=== PATIENT | male | born 1960 | race Caucasian/White ===

== ENCOUNTER 2017-10-14 17:21 | Emergency (ER) | payer OTHER ==
[2017-10-14] MEDS ORDERED: ALBUTEROL 2.5 MG/3 ML NEB SOL ONE (19:28)
[2017-10-14] MEDS ORDERED: METHYLPREDNISOLONE 125 MG INJ ONE (19:28)
[2017-10-14] MEDS ORDERED: IPRATROPIUM BROM 0.5MG/2.5ML ONE (19:28)
[2017-10-14] MEDS ORDERED: MAGNESIUM SULFATE 1 gm IVPB 1 GM/100 ML BAG IV ONE (19:32)
[2017-10-14] MEDS ORDERED: NA CHLORIDE 0.9% 500 ML ONE (19:32)
[2017-10-14 19:54] LABS: Absolute Lymphocytes (CBC) 1.4 K/uL (0.7-4.9); Absolute Monocytes 0.7 K/uL (0.1-1.3); Absolute Neutrophil 3.6 K/uL (1.8-8.0); Basophils % 1.1 % (0-1.3); Eosinophils % 6.4 % (0-4.4); Hematocrit 46.2 % (39.6-49.0); Lymphocytes % 22.9 % (15.3-44.8); MCH 30.8 pg (27.0-35.0); MCV 88.5 fL (80-100); Monocytes % 11.8 % (3.3-12.3); RBC Red Blood Cell Count 5.22 M/uL (4.33-5.43)
[2017-10-14 20:00] LABS: Protime INR 0.98
[2017-10-14 20:06] LABS: Bicarbonate 30 mEq/L (21-31); Glucose Level 114 mg/dL (65-120); Potassium 3.7 mEq/L (3.6-5.0); Sodium Level 138 mEq/L (135-145)
[2017-10-14 20:12] LABS: ALT/SGPT 44 IU/L (10-60); AST/SGOT 37 IU/L (10-42); Albumin 4.5 g/dL (3.2-5.5); Alkaline Phosphatase 96 IU/L (42-121); BUN Blood Urea Nitrogen 11 mg/dL (6-20); Bilirubin Direct < 0.1 mg/dL (0-0.2); Bilirubin Total 0.8 mg/dL (0.3-1.2); Creatine Phosphokinase 285 IU/L (22-269); Magnesium 2.2 mg/dL (1.8-2.5); Protein, Total 7.9 g/dL (6.0-8.3)
[2017-10-14 20:15] LABS: CKMB Creatine Kinase MB 5.3 ng/ml (0.3-4.0)
--- NOTE | 2017-10-14 20:16 | RAD REPORT ---
EXAM DESCRIPTION: RAD - Chest Single View - 10/14/2017 7:27 pm CLINICAL HISTORY: Hypertension, headache, chest pain COMPARISON: August 2014 TECHNIQUE: AP portable chest image was obtained 1922 hours . FINDINGS: No focal mass, consolidation or failure finding. A few small areas of nodularity are belie oliver to be small granulomas stable from prior imaging. No mediastinal or hilar abnormality identifiabl e. Heart and vasculature are normal. No measurable pleural effusion and no pneumothorax. No gross bon y abnormality seen. No acute aortic findings suspected. IMPRESSION: No acute cardiopulmonary process. No significant interval change.
[2017-10-14] MEDS ORDERED: ASPIRIN 81 MG CHEWABLE TABLET ONE (20:36)
--- NOTE | 2017-10-14 21:00 | ER ---
Nurse's Notes [facility] Emergency Department Name: Xander Solis Age: 57 yrs Sex: Male : 1960 Arrival Date: 10/14/2017 Time: 17:25 Bed 2 Private MD: Cooper Carreon R Diagnosis: Unspecified asthma with (acute) exacerbation Presentation: 10/14 17:35 Presenting complaint: Patient states: Saturday, BP was 190/90; cough that started Saturday; hj reports headache, reports nausea; reports night sweats last night and dizziness;. Transition of care: patient was not received from another setting of care. Onset of symptoms was October 14, 2017. Care prior to arrival: None. 17:35 Method Of Arrival: Ambulatory 17:35 Acuity: SHERMAN 3 hj Triage Assessment: 17:39 General: Appears in no apparent distress. uncomfortable, Behavior is calm, cooperative, hj appropriate for age. Pain: Complains of pain in head. Respiratory: Reports shortness of breath cough that is Onset: The symptoms/episode began/occurred Historical: - Allergies: 17:39 No Known Allergies; hj - Home Meds: 17:39 albuterol sulfate Oral [Active]; hj - PMHx: 17:39 Asthma; Hypertension; hj - PSHx: 17:39 nose surgery; hj - Immunization history:: Adult Immunizations unknown. - Social history:: Smoking status: unknown. Screenin:54 Abuse screen: Denies threats or abuse. Denies injuries from another. Nutritional ak1 screening: No deficits noted. Tuberculosis screening: No symptoms or risk factors identified. Fall Risk None identified. Assessment: 17:39 Cardiovascular: Rhythm is. Respiratory: Airway is patent Respiratory effort is even, hj unlabored, Respiratory pattern is regular, symmetrical, 19:52 General: Appears uncomfortable, Behavior is calm, cooperative. Neuro: No deficits ak1 noted. GI: pt vomited X1. pt stated he felt better after. : No signs and/or symptoms were reported regarding the genitourinary system. EENT: No signs and/or symptoms were reported regarding the EENT system. Derm: No signs and/or symptoms reported regarding the dermatologic system. Musculoskeletal: No signs and/or symptoms reported regarding the musculoskeletal system. Vital Signs: 17:39 BP 113 / 73; Pulse 92; Resp 18; Temp 98.4(TE); Pulse Ox 95% on R/A; Weight 95.25 kg; hj Height 6 ft. 0 in. (182.88 cm); Pain 2/10; 19:52 BP 149 / 82 LA Sitting (auto/reg); Pulse 84; Resp 14; Pulse Ox 99% ; cc 20:40 BP 119 / 79; Pulse 110; Resp 14; Temp 98.4; Pulse Ox 95% on R/A; Pain 1/10; ak1 21:06 BP 117 / 73 LA Sitting (auto/reg); Pulse 100; Resp 18; Pulse Ox 97% on R/A; cc 17:39 Body Mass Index 28.48 (95.25 kg, 182.88 cm) ED Course: 17:25 Patient arrived in ED. mr 17:25 Cooper Carreon MD is Private Physician. mr 17:38 Triage completed. hj 17:39 Arm band placed on right wrist. hj 19:12 Marco Myers MD is Attending Physician. tw4 19:12 Zhang Chavez PA is PHCP. cp 19:26 X-ray completed. Portable x-ray completed in exam room. Patient tolerated procedure kc2 well. 19:26 XRAY Chest (1 view) In Process Unspecified. EDMS 19:29 Melissa Kwok, RN is Primary Nurse. ak1 19:49 CKMB Creatine Kinase MB Sent. cc 19:49 Influenza Screen (a \T\ B) Sent. cc 19:49 Basic Metabolic Panel Sent. cc 19:50 Ckmb Sent. cc 19:50 BNP Sent. cc 19:50 CBC with Diff Sent. cc 19:50 CPK Sent. cc 19:50 LFT's Sent. cc 19:50 Magnesium Sent. cc 19:50 PT-INR Sent. cc 19:50 Ptt, Activated Sent. cc 19:51 Troponin (emerg Dept Use Only) Sent. cc 19:51 Initial lab(s) drawn, by me, sent to lab. EKG done, by ED staff, reviewed by Zhang NAVARRO. Inserted saline lock: 20 gauge in right antecubital area, using aseptic technique. Blood collected. 19:54 Patient has correct armband on for positive identification. Placed in gown. Bed in low ak1 position. Call light in reach. Side rails up X 1. Adult w/ patient. nuclear monitoring technician on. Pulse ox on. NIBP on. 19:54 Basic Metabolic Panel Sent. cc 19:55 BNP Sent. cc 21:11 No provider procedures requiring assistance completed. IV discontinued, intact, ak1 bleeding controlled, No redness/swelling at site. Administered Medications: 19:50 Drug: Albuterol - atroVENT (3:1) (2.5 mg - 0.5 mg) 3 ml Route: Nebulizer; ak1 20:39 Follow up: Response: No adverse reaction ak1 19:51 Drug: SOLU-Medrol 125 mg Route: IM; Site: left gluteus; ak1 20:39 Follow up: Response: No adverse reaction ak1 19:51 Drug: NS 0.9% 500 ml Route: IV; Rate: bolus; Site: right antecubital; ak1 21:11 Follow up: IV Status: Completed infusion ak1 19:51 Drug: Magnesium Sulfate 1 grams Route: IVPB; Infused Over: 1 hrs; Site: right ak1 antecubital; 21:13 Follow up: IV Status: Completed infusion ak1 20:39 Drug: Aspirin Chewable Tablet 324 mg Route: PO; ak1 20:39 Follow up: Response: No adverse reaction ak1 Outcome: 20:59 Discharge ordered by . cp 21:11 Discharged to home ambulatory, with family. ak1 21:11 Condition: good 21:11 Discharge instructions given to patient, family, Instructed on discharge instructions, follow up and referral plans. medication usage, Demonstrated understanding of instructions, follow-up care, medications, Prescriptions given X 4. 21:12 Patient left the ED. ak1 Signatures: Dispatcher [employer] EDND Larissa Campbell ScientologyAnastasiia Melissa Kwok RN RN ak1 Tony Leiva RN RN hj Page, Corey, PA PA cp Carr, Kelsie kc2 Marco Myers MD MD tw4 Corrections: (The following items were deleted from the chart) 17:41 17:35 Presenting complaint: Patient states: Saturday, BP was 190/90; cough that started hj Saturday; reports headache, reports nausea; hj 17:41 17:39 Pulse 92bpm; Resp 18bpm; Pulse Ox 95% RA; Temp 98.4F Temporal; 95.25 kg; Height 6 hj ft. 0 in.; BMI: 28.4; Pain 2/10; hj
--- NOTE | 2017-10-14 21:00 | EDPHYS ---
Physician Documentation [facility] Name: Xander Solis Age: 57 yrs Sex: Male : 1960 Arrival Date: 10/14/2017 Time: 17:25 Bed 2 Private MD: Cooper Carreon R ED Physician Marco Myers HPI: 10/14 19:15 This 57 yrs old Male presents to ER via Ambulatory with complaints of High cp Blood Pressure, Shortness Of Breath. 19:15 The patient has elevated blood pressure and discovered this at home. Onset: The cp symptoms/episode began/occurred 3 day(s) ago. Associated signs and symptoms: Pertinent positives: cough, shortness of breath. 19:15 Severity of symptoms: At its worst the blood pressure was 190 mm Hg, in the emergency cp department the blood pressure is improved, markedly. Historical: - Allergies: 17:39 No Known Allergies; hj - Home Meds: 17:39 albuterol sulfate Oral [Active]; hj - PMHx: 17:39 Asthma; Hypertension; hj - PSHx: 17:39 nose surgery; hj - Immunization history:: Adult Immunizations unknown. - Social history:: Smoking status: unknown. ROS: 19:20 Constitutional: Negative for body aches, chills, fever, poor PO intake. cp 19:20 Eyes: Negative for injury, pain, redness, and discharge. cp 19:20 ENT: Negative for drainage from ear(s), ear pain, sore throat, difficulty swallowing, difficulty handling secretions. 19:20 Cardiovascular: Positive for chest pain, with cough, Negative for edema, palpitations. 19:20 Respiratory: Positive for cough, shortness of breath, wheezing. 19:20 Abdomen/GI: Negative for abdominal pain, vomiting, diarrhea, constipation, black/tarry stool, rectal bleeding. 19:20 Back: Negative for pain at rest, pain with movement, radiated pain. 19:20 : Negative for urinary symptoms. 19:20 Skin: Negative for cellulitis, rash. 19:20 Neuro: Negative for altered mental status, headache, numbness, seizure activity, weakness. 19:20 All other systems are negative. Exam: 19:28 Constitutional: The patient appears in no acute distress, alert, awake, cp non-diaphoretic, non-toxic, well developed, well nourished. 19:28 Head/Face: Normocephalic, atraumatic. Eyes: Pupils equal round and reactive to light, cp extra-ocular motions intact. Lids and lashes normal. Conjunctiva and sclera are non-icteric and not injected. Cornea within normal limits. Periorbital areas with no swelling, redness, or edema. ENT: Nares patent. No nasal discharge, no septal abnormalities noted. Tympanic membranes are normal and external auditory canals are clear. Oropharynx with no redness, swelling, or masses, exudates, or evidence of obstruction, uvula midline. Mucous membranes moist. Neck: Trachea midline, no thyromegaly or masses palpated, and no cervical lymphadenopathy. Supple, full range of motion without nuchal rigidity, or vertebral point tenderness. No Meningismus. Chest/axilla: Normal chest wall appearance and motion. Nontender with no deformity. No lesions are appreciated. 19:28 Cardiovascular: Rate: normal, Rhythm: regular, Pulses: Pulses are 2+ in right radial artery and left radial artery. Edema: is not appreciated, JVD: is not appreciated. 19:28 Respiratory: the patient does not display signs of respiratory distress, Respirations: labored breathing, is not present, accessory muscle usage, is absent, intercostal retractions, are absent, splinting, is not noted, tachypnea, is not appreciated, Breath sounds: rhonchi, are not appreciated, stridor, is not appreciated, wheezing: that is moderate, is heard diffusely. 19:28 Abdomen/GI: Inspection: abdomen appears normal, Bowel sounds: active, all quadrants, Palpation: abdomen is soft and non-tender, in all quadrants, rebound tenderness, is not appreciated, voluntary guarding, is not appreciated, involuntary guarding, is not appreciated. 19:28 Back: pain, is absent, ROM is normal. 19:28 Skin: cellulitis, is not appreciated, no rash present. 19:28 Neuro: Orientation: no acute changes, per family, Mentation: no acute changes, per family, Motor: moves all fours, strength is normal, Sensation: no obvious gross deficits, Gait: is steady. 19:35 ECG was reviewed by the Attending Physician. cp Vital Signs: 17:39 BP 113 / 73; Pulse 92; Resp 18; Temp 98.4(TE); Pulse Ox 95% on R/A; Weight 95.25 kg; hj Height 6 ft. 0 in. (182.88 cm); Pain 2/10; 19:52 BP 149 / 82 LA Sitting (auto/reg); Pulse 84; Resp 14; Pulse Ox 99% ; cc 20:40 BP 119 / 79; Pulse 110; Resp 14; Temp 98.4; Pulse Ox 95% on R/A; Pain 1/10; ak1 21:06 BP 117 / 73 LA Sitting (auto/reg); Pulse 100; Resp 18; Pulse Ox 97% on R/A; cc 17:39 Body Mass Index 28.48 (95.25 kg, 182.88 cm) hj MDM: 19:12 Patient medically screened. tw4 19:30 Differential diagnosis: hypertensive crisis, Malignant HTN, CVA, intracerebral cp hemorrhage. 20:45 Data reviewed: vital signs, nurses notes, lab test result(s), EKG, radiologic studies, cp plain films. 20:45 Test interpretation: by ED physician or midlevel provider: ECG, plain radiologic cp studies. 20:55 Counseling: I had a detailed discussion with the patient and/or guardian regarding: the cp historical points, exam findings, and any diagnostic results supporting the discharge/admit diagnosis, lab results, radiology results, the need for outpatient follow up, a family practitioner, to return to the emergency department if symptoms worsen or persist or if there are any questions or concerns that arise at home. 20:55 Response to treatment: the patient's symptoms have markedly improved after treatment, cp and as a result, I will discharge patient. 10/14 19:10 Order name: Basic Metabolic Panel tw 10/14 19:10 Order name: BNP; Complete Time: 20:30 tw4 10/14 19:10 Order name: CBC with Diff; Complete Time: 20:30 tw10/14 20:30 Interpretation: Normal except: MCV 88.5; EOSINOPHIL % 6.4. cp 10/14 19:10 Order name: Ckmb tw4 10/14 19:10 Order name: CPK; Complete Time: 20:30 tw10/14 20:30 Interpretation: Abnormal: CPK 285. cp 10/14 19:10 Order name: LFT's; Complete Time: 20:30 tw4 10/14 19:10 Order name: Magnesium; Complete Time: 20:30 tw4 10/14 19:10 Order name: PT-INR; Complete Time: 20:30 tw4 10/14 19:10 Order name: Ptt, Activated; Complete Time: 20:30 tw4 10/14 19:10 Order name: Troponin (emerg Dept Use Only); Complete Time: 20:30 tw4 10/14 20:43 Interpretation: Reviewed. 10/14 19:10 Order name: XRAY Chest (1 view); Complete Time: 20:30 tw4 10/14 19:11 Order name: Basic Metabolic Panel; Complete Time: 20:30 EDMS 10/14 20:43 Interpretation: Normal except: GFR 67. 10/14 19:11 Order name: CKMB Creatine Kinase MB; Complete Time: 20:30 EDMS 10/14 20:30 Interpretation: Abnormal: CKMB 5.3. 10/14 19:28 Order name: Influenza Screen (a \T\ B); Complete Time: 20:30 10/14 19:10 Order name: EKG; Complete Time: 19:11 [facility] 10/14 19:10 Order name: Cardiac monitoring; Complete Time: 19:49 tw 10/14 19:10 Order name: EKG - Nurse/Tech; Complete Time: 19:50 tw 10/14 19:10 Order name: IV Saline Lock; Complete Time: 19:50 tw 10/14 19:10 Order name: Labs collected and sent; Complete Time: 19:54 tw4 10/14 19:10 Order name: O2 Per Protocol; Complete Time: 19:52 tw4 10/14 19:10 Order name: O2 Sat Monitoring; Complete Time: 19:52 tw4 EC:35 Rate is 92 beats/min. Rhythm is regular. MA interval is normal. QRS interval is normal. QT interval is normal. Interpreted by me. Reviewed by me. Administered Medications: 19:50 Drug: Albuterol - atroVENT (3:1) (2.5 mg - 0.5 mg) 3 ml Route: Nebulizer; ak1 20:39 Follow up: Response: No adverse reaction ak1 19:51 Drug: SOLU-Medrol 125 mg Route: IM; Site: left gluteus; ak1 20:39 Follow up: Response: No adverse reaction ak1 19:51 Drug: NS 0.9% 500 ml Route: IV; Rate: bolus; Site: right antecubital; ak1 21:11 Follow up: IV Status: Completed infusion ak1 19:51 Drug: Magnesium Sulfate 1 grams Route: IVPB; Infused Over: 1 hrs; Site: right ak1 antecubital; 21:13 Follow up: IV Status: Completed infusion ak1 20:39 Drug: Aspirin Chewable Tablet 324 mg Route: PO; ak1 20:39 Follow up: Response: No adverse reaction ak1 Disposition: 10/15 00:21 Co-signature as Attending Physician, Marco Myers MD I agree with the assessment and tw4 plan of care. Disposition: 10/14/17 20:59 Discharged to Home. Impression: Unspecified asthma with (acute) exacerbation. - Condition is Stable. - Discharge Instructions: Asthma, Adult. - Prescriptions for prednisone 50 mg Oral tablet - take 1 tablet by ORAL route once daily for 5 days; 5 tablet. Albuterol Sulfate 2.5 mg /3 mL (0.083 %) Inhalation Solution for Nebulization - inhale 1 unit by NEBULIZATION route every 8 hours As needed; 1 box. Albuterol Sulfate 90 mcg/actuation - inhale 1-2 puff by INHALATION route every 4-6 hours; 1 Inhaler. - Medication Reconciliation Form, Thank You Letter, Antibiotic Education, Prescription Opioid Use form. - Follow up: Private Physician; When: 1 - 2 days; Reason: Recheck today's complaints. - Problem is new. - Symptoms have improved. Signatures: Dispatcher [employer] Melissa Martinze RN RN ak1 Tony Leiva RN RN hj Page, Corey, PA PA cp Wadley, Terrence, MD MD tw4
[2017-10-14 21:28] VITALS: TEMP 98.4
[2017-10-14 21:33] VITALS: BP 117/73; O2SAT 97
--- NOTE | 2017-10-15 06:56 | EKG ---
Test Date: 2017-10-14 Test Time: 19:28:14 Lathe Hand: ISAIAH MEASUREMENT RESULTS: Intervals: Rate: 92 WV: 142 QRSD: 80 QT: 350 QTc: 432 Elmer: P: 81 WV: 142 QRS: 45 T: 68 INTERPRETIVE STATEMENTS: Normal sinus rhythm Septal infarct, age undetermined Abnormal ECG Compared to ECG 08/15/2014 04:35:51 Myocardial infarct finding now present Electronically Signed On 10-15-17 06:55:05 CDT by Montrell Estevez
== END 2017-10-14 21:12 | disposition home or self-care (01) ==
LOC: ER 17:21
DX: J45.901 Unspecified asthma with (acute) exacerbation (principal); I10 Essential (primary) hypertension
CPT/HCPCS: 36415; 71045; 80048; 80076; 82550; 82553; 83735; 83880; 84484; 85025; 85610; 85730; 87804; 93005; 94640; 96361; 96365; 96372; 99285; J2930; J3475

== ENCOUNTER 2019-12-15 13:50 | Emergency (ER) | payer OTHER ==
--- NOTE | 2019-12-15 15:01 | RAD REPORT ---
EXAM DESCRIPTION: CT - Head Brain Wo Cont - 12/15/2019 2:51 pm CLINICAL HISTORY: HEADACHE COMPARISON: MAXILLOFACIAL W O CONTRAST dated 08/15/2014 TECHNIQUE: Axial 5 mm thick images of the head were obtained without IV contrast. All CT scans are performed using dose optimization technique as appropriate and may include automated exposure control or mA/KV adjustment according to patient size. FINDINGS: No intracranial hemorrhage, mass, edema or shift of mid-line structures. No acute infarcti on changes seen. No abnormal extra-axial fluid collections. Ventricles are normal. Mastoid air cells and visualized portions of the paranasal sinuses are clear. No acute bony findings. IMPRESSION: Negative non-contrast CT head examination.
[2019-12-15] MEDS ORDERED: KETOROLAC 30 MG/ML INJ ONE (16:27)
[2019-12-15] MEDS ORDERED: METOCLOPRAMIDE 10 MG/2mL INJ ONE (16:27)
[2019-12-15] MEDS ORDERED: DIPHENHYDRAMINE 50 MG/ML VIAL ONE (16:27)
[2019-12-15] MEDS ORDERED: NA CHLORIDE 0.9% 1,000 ML ONE (16:27)
--- NOTE | 2019-12-15 17:53 | EDPHYS ---
Physician Documentation [facility] Name: Xander Solis Age: 59 yrs Sex: Male : 1960 Arrival Date: 12/15/2019 Time: 13:53 Bed 13 Private MD: ED Physician Bo Hansen HPI: 12/14 16:42 This 59 yrs old Male presents to ER via Ambulatory with complaints of pm1 Headache. 16:42 The patient complains of pain to the right eye. The patient describes the headache as pm1 Sharp. Onset: The symptoms/episode began/occurred Ongoing for the past 4-5 years. Has headaches 3-4 times per week. Associated signs and symptoms: Pertinent positives: Photophobia Pertinent negatives: dizziness, fever, nausea, neck stiffness, paresthesias, rash, sinus congestion, sinus tenderness, vision changes, vision loss, vomiting, vertigo. Severity of symptoms: in the emergency department the pain has improved. Headache History: Other patient has had previous headaches and this headache is the same as his prior headaches. The symptoms are alleviated by quiet, sleep, closing eyes the symptoms are aggravated by lights, noise. The patient has experienced similar episodes in the past, chronically. Historical: - Allergies: 14:21 No Known Allergies; tw2 - Home Meds: 14:21 albuterol sulfate Oral [Active]; paroxetine HCl 10 mg oral tab 1 tab once daily tw2 [Active]; albuterol sulfate 2.5 mg /3 mL (0.083 %) Inhl nebu 3 mL 3 times per day [Active]; Vimpat 100 mg oral tab 1 tab 2 times per day [Active]; losartan 50 mg oral tab 1 tab once daily [Active]; tadalafil oral 5 mg oral 1 tab once daily [Active]; - PMHx: 14:21 Asthma; Hypertension; Seizures; tw2 - PSHx: 14:21 nose surgery; tw2 - Immunization history:: Adult Immunizations. - Social history:: Smoking status: Patient reports use of chewing tobacco. ROS: 16:45 Constitutional: Negative for fever, chills, and weight loss, Eyes: Negative for injury, pm1 pain, redness, and discharge, ENT: Negative for injury, pain, and discharge, Neck: Negative for injury, pain, and swelling, Cardiovascular: Negative for chest pain, palpitations, and edema, Respiratory: Negative for shortness of breath, cough, wheezing, and pleuritic chest pain, Abdomen/GI: Negative for abdominal pain, nausea, vomiting, diarrhea, and constipation, Back: Negative for injury and pain, MS/Extremity: Negative for injury and deformity, Skin: Negative for injury, rash, and discoloration. 16:45 Neuro: Positive for headache, Negative for altered mental status, dizziness, gait disturbance, numbness, tingling, weakness. Exam: 16:54 Constitutional: This is a well developed, well nourished patient who is awake, alert, pm1 and in no acute distress. Head/Face: Normocephalic, atraumatic. Eyes: Pupils equal round and reactive to light, extra-ocular motions intact. Lids and lashes normal. Conjunctiva and sclera are non-icteric and not injected. Cornea within normal limits. Periorbital areas with no swelling, redness, or edema. ENT: Nares patent. No nasal discharge, no septal abnormalities noted. Tympanic membranes are normal and external auditory canals are clear. Oropharynx with no redness, swelling, or masses, exudates, or evidence of obstruction, uvula midline. Mucous membranes moist. Neck: Trachea midline, no thyromegaly or masses palpated, and no cervical lymphadenopathy. Supple, full range of motion without nuchal rigidity, or vertebral point tenderness. No Meningismus. Chest/axilla: Normal chest wall appearance and motion. Nontender with no deformity. No lesions are appreciated. 16:54 Abdomen/GI: Soft, non-tender, with normal bowel sounds. No distension or tympany. No guarding or rebound. No evidence of tenderness throughout. Back: No spinal tenderness. No costovertebral tenderness. Full range of motion. Skin: Warm, dry with normal turgor. Normal color with no rashes, no lesions, and no evidence of cellulitis. MS/ Extremity: Pulses equal, no cyanosis. Neurovascular intact. Full, normal range of motion. 16:54 Cardiovascular: Exam negative for acute changes, Rate: normal, Rhythm: regular, Pulses: no pulse deficits are appreciated. 16:54 Respiratory: Exam negative for acute changes, respiratory distress, shortness of breath. 16:54 Neuro: Exam negative for acute changes, focal neuro deficits, Orientation: is normal, Mentation: is normal, Cranial nerves: CN II- XII are normal as tested, Cerebellar function: normal finger to nose testing, heel to matthews testing is normal, Motor: moves all fours, strength is normal, strength is 5/5 in all extremities, Sensation: is normal, no obvious gross deficits, Babinski testing is normal. Vital Signs: 14:15 BP 143 / 81; Pulse 69; Resp 17; Temp 98.4(TE); Pulse Ox 98% on R/A; Weight 95.25 kg tw2 (R); Height 6 ft. 2 in. (187.96 cm); Pain 2/10; 15:49 BP 128 / 85; Pulse 58; Resp 18; Pulse Ox 97% ; dh4 16:45 BP 106 / 86; Pulse 53; Resp 16; Pulse Ox 98% ; ah 17:30 BP 103 / 73; Pulse 55; Resp 16; Pulse Ox 97% ; ah 18:15 BP 126 / 82; Pulse 60; Resp 16; Pulse Ox 97% ; ah 14:15 Body Mass Index 26.96 (95.25 kg, 187.96 cm) tw2 MDM: 15:12 Patient medically screened. pm1 17:45 ED course: told the patient and family that my impression is cluster headache. pm1 Patient's researched online and agrees with impression because he has multiple symptoms of the classic presentation of cluster headaches. Patient's headache resolved with medications given in the ER. 17:52 Data reviewed: vital signs. Data interpreted: Pulse oximetry: on room air is 97 %. pm1 Interpretation: normal. Counseling: I had a detailed discussion with the patient and/or guardian regarding: the historical points, exam findings, and any diagnostic results supporting the discharge/admit diagnosis, radiology results, the need for outpatient follow up, a neurologist, to return to the emergency department if symptoms worsen or persist or if there are any questions or concerns that arise at home. 12/14 14:01 Order name: CT Head Brain wo Cont; Complete Time: 15:12 snw 12/14 15:48 Order name: IV Saline Lock; Complete Time: 16:54 pm1 Administered Medications: 16:30 Drug: TORadol - Ketorolac 15 mg Route: IVP; Site: right antecubital; 18:23 Follow up: Response: No adverse reaction 16:30 Drug: Benadryl 25 mg Route: IVP; Site: right antecubital; 18:23 Follow up: Response: No adverse reaction 16:30 Drug: Reglan 10 mg Route: IVP; Site: right antecubital; 18:23 Follow up: Response: No adverse reaction 16:30 Drug: NS 0.9% 1000 ml Route: IV; Rate: 1000 ml; Site: right antecubital; 18:23 Follow up: Response: No adverse reaction; IV Status: Completed infusion Disposition: 12/15 13:25 Co-signature as Attending Physician, Bo Hansen MD I agree with the assessment and kdr plan of care. Disposition: 12/15/19 17:52 Discharged to Home. Impression: Headache. - Condition is Stable. - Discharge Instructions: Cluster Headache. - Medication Reconciliation Form, Thank You Letter, Antibiotic Education, Prescription Opioid Use form. - Follow up: Emergency Department; When: As needed; Reason: Worsening of condition. Follow up: Private Physician; When: 2 - 3 days; Reason: Recheck today's complaints, Continuance of care, Re-evaluation by your physician. - Problem is new. - Symptoms have improved. Signatures: Dispatcher [employer] EDMS Bo Hansen MD MD [facility] John Reynoso NP LOAN SERVICING REPRESENTATIVE pm1 Misty Rodriguez RN RN tw2 Viktoriya Estevez RN RN Corrections: (The following items were deleted from the chart) 12/14 18:33 17:52 12/15/2019 17:52 Discharged to Home. Impression: Headache. Condition is Stable. ah Forms are Medication Reconciliation Form, Thank You Letter, Antibiotic Education, Prescription Opioid Use. Follow up: Emergency Department; When: As needed; Reason: Worsening of condition. Follow up: Private Physician; When: 2 - 3 days; Reason: Recheck today's complaints, Continuance of care, Re-evaluation by your physician. Problem is new. Symptoms have improved. pm1
--- NOTE | 2019-12-15 17:53 | ER ---
Nurse's Notes [facility] Name: Xander Solis Age: 59 yrs Sex: Male : 1960 Arrival Date: 12/15/2019 Time: 13:53 Bed 13 Private MD: Diagnosis: Headache Presentation: 12/14 14:15 Chief complaint: Spouse and/or significant other states: this problem has been going on tw2 a long time, like years, we went to dr. [place], he gave him blood pressure medicine and it seem slike some of it subsided, but it feels like and ice pick is going through his samaritan area behind his right eye. Coronavirus screen: Patient denies a cough. Patient denies shortness of breath or difficulty breathing. Patient denies measured and/or subjective temperature greater than 100.4F prior to today's visit. Patient denies travel on a cruise ship or to a country the [facility] currently lists as an affected area. Patient denies contact with known and/or suspected case of COVID-19. Ebola Screen: Patient denies travel to an Ebola-affected area in the 21 days before illness onset. Initial Sepsis Screen: Does the patient meet any 2 criteria? No. Patient's initial sepsis screen is negative. Does the patient have a suspected source of infection? No. Patient's initial sepsis screen is negative. Risk Assessment: Do you want to hurt yourself or someone else? Patient reports no desire to harm self or others. Onset of symptoms was December 15, 2019. 14:15 Method Of Arrival: Ambulatory tw2 14:15 Acuity: SHERMAN 3 tw2 Triage Assessment: 14:17 Headache History: Other sometimes it last seconds but this one is just staying longer. tw2 General: Appears in no apparent distress. well groomed, Behavior is calm, cooperative, appropriate for age. Pain: Complains of pain in right samaritan Pain currently is 3 out of 10 on a pain scale. Pain began years ago. Also complains of no other associated symptoms. Neuro: Reports headache in right samaritan area. Historical: - Allergies: 14:21 No Known Allergies; tw2 - Home Meds: 14:21 albuterol sulfate Oral [Active]; paroxetine HCl 10 mg oral tab 1 tab once daily tw2 [Active]; albuterol sulfate 2.5 mg /3 mL (0.083 %) Inhl nebu 3 mL 3 times per day [Active]; Vimpat 100 mg oral tab 1 tab 2 times per day [Active]; losartan 50 mg oral tab 1 tab once daily [Active]; tadalafil oral 5 mg oral 1 tab once daily [Active]; - PMHx: 14:21 Asthma; Hypertension; Seizures; tw2 - PSHx: 14:21 nose surgery; tw2 - Immunization history:: Adult Immunizations. - Social history:: Smoking status: Patient reports use of chewing tobacco. Screenin:24 Abuse screen: Denies threats or abuse. Nutritional screening: No deficits noted. ah Tuberculosis screening: No symptoms or risk factors identified. Fall Risk None identified. Assessment: 14:40 General: Appears uncomfortable, Behavior is calm, cooperative, appropriate for age. ah Pain: Complains of pain in right samaritan Pain currently is 10 out of 10 on a pain scale. Quality of pain is described as sharp, stabbing. Neuro: Level of Consciousness is awake, alert, Oriented to person, place, time, situation. Cardiovascular: Capillary refill < 3 seconds Patient's skin is warm and dry. Respiratory: Airway is patent Respiratory effort is even, unlabored, Respiratory pattern is regular, symmetrical. GI:. Derm: Skin is intact, is healthy with good turgor. 15:40 Reassessment: Patient and/or family updated on plan of care and expected duration. Pain ah level reassessed. Patient is alert, oriented x 3, equal unlabored respirations, skin warm/dry/pink. 17:30 Reassessment: Patient and/or family updated on plan of care and expected duration. Pain ah level reassessed. Pt resting with eyes closed and resp even and unlabored. at bedside. NO needs voiced at this time. 18:15 Reassessment: Patient and/or family updated on plan of care and expected duration. Pain ah level reassessed. Pt given discharge instructions. Pt states that he is feeling better. Pt voiced understanding. Vital Signs: 14:15 BP 143 / 81; Pulse 69; Resp 17; Temp 98.4(TE); Pulse Ox 98% on R/A; Weight 95.25 kg tw2 (R); Height 6 ft. 2 in. (187.96 cm); Pain 2/10; 15:49 BP 128 / 85; Pulse 58; Resp 18; Pulse Ox 97% ; dh4 16:45 BP 106 / 86; Pulse 53; Resp 16; Pulse Ox 98% ; ah 17:30 BP 103 / 73; Pulse 55; Resp 16; Pulse Ox 97% ; ah 18:15 BP 126 / 82; Pulse 60; Resp 16; Pulse Ox 97% ; ah 14:15 Body Mass Index 26.96 (95.25 kg, 187.96 cm) tw2 ED Course: 13:53 Patient arrived in ED. fj1 14:17 Triage completed. tw2 14:17 Arm band placed on. tw2 14:54 CT Head Brain wo Cont In Process Unspecified. EDMS 15:10 John Reynoso NP is PHCP. pm1 15:10 Bo Hansen MD is Attending Physician. pm1 16:03 Viktoriya Estevez RN is Primary Nurse. 16:17 Inserted saline lock: 20 gauge in right antecubital area, using aseptic technique. dh4 18:00 Patient has correct armband on for positive identification. Bed in low position. Call light in reach. Side rails up X2. Pulse ox on. NIBP on. 18:25 No provider procedures requiring assistance completed. IV discontinued, intact, ah bleeding controlled, No redness/swelling at site. Pressure dressing applied. Administered Medications: 16:30 Drug: TORadol - Ketorolac 15 mg Route: IVP; Site: right antecubital; 18:23 Follow up: Response: No adverse reaction 16:30 Drug: Benadryl 25 mg Route: IVP; Site: right antecubital; 18:23 Follow up: Response: No adverse reaction 16:30 Drug: Reglan 10 mg Route: IVP; Site: right antecubital; 18:23 Follow up: Response: No adverse reaction 16:30 Drug: NS 0.9% 1000 ml Route: IV; Rate: 1000 ml; Site: right antecubital; 18:23 Follow up: Response: No adverse reaction; IV Status: Completed infusion Outcome: 17:52 Discharge ordered by . pm1 18:24 Discharged to home ambulatory. 18:24 Condition: good 18:24 Discharge instructions given to patient, Instructed on discharge instructions, follow up and referral plans. Demonstrated understanding of instructions, follow-up care. 18:33 Patient left the ED. Signatures: Dispatcher [employer] EDJohn Wright, RENU CORPORATE ANALYST pm1 Misty Rodriguez RN RN tw2 Franck Gutierrez fj1 Viktoriya Estevez RN RN Leo Peterson 4
[2019-12-15 18:39] VITALS: TEMP 98.4
[2019-12-15 18:42] VITALS: O2SAT 97
[2019-12-15 18:44] VITALS: BP 126/82
--- OUTSIDE RECORDS SUMMARY | 2019-12-15 19:18 | XMS REPORT | Continuity of Care Document ---
:1960 Author Organization [facility] t Address [address] [place] [address] Care Team Providers Name Role Phone Eb Franklin Primary Care Physician Unavailable OSCAR Attending Clinician Unavailable Problems Condition Condition Condition Status Onset Resolution Last Treating Co mments Source Name Details Category Date Date Treatment Clinician Date Fatigue, Fatigue, Diagnosis Active [facility] unspecifie Vickie kes - [facility] Low Low Problem Active [facility] testostero testostero Vickie kes - ne ne [facility] Low libido Low libido Diagnosis Active [facility] Allergies, Adverse Reactions, Alerts This patient has no known allergies or adverse reactions. Social History Social Habit Start Date Stop Date Quantity Comments Source Sex Assigned At [facility] Medications Ordered Filled Start Stop Current Ordering Indication Dosage Frequency Signature Comments Components Source Medication Medication Date Date Medication? Clinician (SIG) Name Name Vimpat Vimpat Yes Indira [address] [facility] [address] [facility] Albuterol Albuterol Yes Indira [address] [facility] Sulfate HFA Sulfate HFA [place] needed [facility] Paroxetine Paroxetine Yes Indira [address] [facility] HCl HCl Luis in the [facility] - morning [facility] Procedures This patient has no known procedures. Encounters Start End Encounter Admission Attending Care Care Encounter Source Date/Time Date/Time Type Type Clinicians Facility Department ID 2019-03-19 2019-03-19 Out[facility] [id number] [facility] [address] 13:30:00 13:30:00 t Specialty/U Vickie kes - Specialty rology [facility] l Clinic Outpati ent Clinics Results Test Description Test Time Test Comments Results Result [facility] e Comments EEG AWAKE AND 2018-05-26 Reason for Date of EE05/26/18 DROWSY 14:39:00 exam:->SEIZUR DATE OF REPORT: 05/26/18 ACC: [id number] EEG Number: [id number] Test Location: outpatient Start time: 05/26/18 at 1007 Stop time: 05/26/18 at 1031 ICD-10: 86009 CPT Code: R56.9 HISTORY: 58 yo male with h/o epilepsy presents for evaluation to look for medication effect of his seizure medication. MEDICATIONS THAT COULD AFFECT EEG: lacosamide TECHNICAL SUMMARY: This is a digital video-EEG recorded with 32 input channels reviewed with bipolar and referential montages using the modified combinatorial system nomenclature. DESCRIPTION OF RECORD: In wakefulness, a symmetric continuous background pattern is seen with an appropriate mixture of theta and alpha activity. A clear PDR was not discerned, likely due to diffuse background beta activity Drowsiness was characterized by alpha attenuation and increased frontocentral theta. Stage 2 sleep was reached characterized by symmetric sleep spindles and K-complexes. SIGNIFICANT VIDEO EVENTS: None SIGNIFICANT ELECTROCARDIOGRAM EVENTS: None HV: Hyperventilation was not performed. PHOTIC STIMULATION: Photic stimulation was done from 1-30 Hz; photic driving was seen; photoparoxysmal responses were absent. IMPRESSION: Normal Awake and Sleep EEG. There are no epileptiform discharges or electrographic seizures. CLINICAL CORRELATION: An EEG without epileptiform discharges does not exclude the possibility of epilepsy. It the clinical suspicion of epilepsy remains, consider additional EEG recordings. Ivan Chu MD Neurophysiology Fellow Brandon Valiente MD PhD Attending Neurophysiologist [facility] AWAKE AND 2017-11-08 Reason for Neurophysiology DROWSY 17:05:00 exam:->s09.90 Electroencephalogram xa, g31.84, Report DATE OF REPORT: r56.9 11/08/17Date(s) of Study: 11/08/17ACC: [id number]: [id number] time: 1454 hrsStop time: 1524 hrsICD-10: R40.4 Transient Alteration of AwarenessCPT Code: 83014 EEG: awake and asleep <40 min HISTORY: 57 year old male referred for EEG due to reports of zoning out without loss of consciousness and for memory loss. He secondarily reports headaches (retro-orbital). MEDICATIONS THAT COULD AFFECT EEG: None TECHNICAL SUMMARY: This is a digital video EEG recorded with 32 input channels reviewed with bipolar and referential montages using the modified combinatorial system nomenclature. DESCRIPTION OF RECORD: Background: There was a symmetric, reactive to eye opening, and well regulated posterior dominant rhythm of 8 Hz. More anteriorly, low to normal (12-30 uV) amplitude alpha activities predominated with beta activity present bi-frontally. Vertex waves were seen in stage I sleep; symmetric frontocentral spindles and k-complexes were seen in stage II sleep. Interictal Epileptiform Abnormalities: There were recurrent brief 3-4 seconds lasting epochs of a moderate amplitude (40-80 uV) left anterior temporal (T7 maximal, FT9, F7) 3-3.5 Hz monomorphic rhythmic activity. Activation Procedures: Hyperventilation was performed; there was a modest physiologic slowing, as well as, some of the above interictal abnormalities seen. Photic stimulation was done from 3-18 Hz with no photoparoxysmal responses. There was photic driving. Events: None Electrocardiogram: A single lead EKG showed an average heart rate of 60 beats per minute. IMPRESSION: 1. Abnormal awake and asleep EEG due to: a. temporal intermittent rhythmic delta activity (TIRDA), left anterior temporal 2. No electrographic seizures seenCLINICAL COMMENT: The temporal intermittent rhythmic delta activity (TIRDA) as seen in this record is considered an epileptogenic finding indicative of a focally increased propensity towards the generation of epileptic seizures. Tia Lopez MDEpilepsy Fellow Attending note: I reviewed this EEG record in its entirety and I agree with the details of this report.Odilia Boogie MD, PhDClinical Neurophysiology Attending , BRAIN, WITH 2017-11-08 FINAL REPORT PATIENT ID: [id number] MRI Brain with and without contrast seizure protocol 11/08/2017 at 1320. CLINICAL HISTORY: Cognitive impairment. COMPARISON: None available. TECHNIQUE: Multiplanar MR imaging of the brain was provided [id number] IV gadolinium administration using T1, T2, FLAIR, FFE, DWI, and ADC map imaging. Dedicated coronal T1, T2, and FLAIR imaging sequences were performed as well. FINDINGS: There is no infarct, hematoma, mass, hydrocephalus, extra-axial collection, or abnormal intracranial enhancement. There is no schizencephaly, callosal dysgenesis, mesial temporal sclerosis, heterotopia, or evident cortical dysplasia. Normal appearing flow-voids are present within the major intracranial vascular structures. There is a small developmental venous anomaly in the right cingulate gyrus. The sellar and pineal regions, craniocervical junction, orbits, face, and skull base are unremarkable. IMPRESSION: Unremarkable contrast-enhanced examination. Signed: Merrick Manzanares MDReport Verified Date/Time: 11/08/2017 13:51:10 Reading Location: [facility] Radiology Reading Room -CREATININE 2017-11-08 12:49:00 Test Item Value Reference Range Interpretation Comme [facility] POC-CREATININE (ROZINA) (test 1.1 mg/dL 0.6-1.[address] [facility] 6720 code = 1859) [facility] [address] POC-EGFR (ROZINA) (test code = 69 mL/min/1.73M2 0890)
--- OUTSIDE RECORDS SUMMARY | 2019-12-15 19:18 | XMS REPORT | Clinical Summary ---
:1960 Author Organization [facility] Address [address] [place] [address] Care Team Providers Name Role Phone Eb Franklin Primary Care Provider Unavailable Allergies No Known Allergies Medications Not on file Active Problems Not on file Social History Tobacco Use Types Packs/Day Years Used Date Never Assessed Sex Assigned at Date Recorded Not on file Job Start Date Occupation Industry Not on file Not on file Not on file Travel History Travel Start Travel End No recent travel history available. Last Filed Vital Signs Not on file Plan of Treatment Not on file Results Not on fileafter 12/14/2018 Insurance Payer Benefit Plan / Group Subscriber ID Type Phone A ddress [employer] - MGD CARE CIGNA HMO/POS/OPEN ACCESS xxxxxxxxxxx HMO/POS
== END 2019-12-15 18:33 | disposition home or self-care (01) ==
LOC: ER 13:50
DX: R51 Headache (principal); I10 Essential (primary) hypertension; G40.909 Epilepsy, unspecified, not intractable, without status epilepticus; F17.220 Nicotine dependence, chewing tobacco, uncomplicated
CPT/HCPCS: 96361; 70450; 96375; 96374; 99284; J2765; J1200; J7030

== ENCOUNTER 2020-04-27 16:49 | Emergency (ER) | payer OTHER ==
--- OUTSIDE RECORDS SUMMARY | 2020-04-27 16:51 | XMS REPORT | Clinical Summary ---
:1960 Author Organization [facility] Address [address] [place] [address] Care Team Providers Name Role Phone Eb Franklin Primary Care Provider Allergies No Known Allergies Medications Not on file Active Problems Not on file Social History Tobacco Use Types Packs/Day Years Used Date Never Assessed Sex Assigned at Date Recorded Not on file Last Filed Vital Signs Not on file Plan of Treatment Not on file Results Not on fileafter 04/27/2019 Insurance Payer Benefit Plan / Subscriber ID Effective Dates Phone Addre ss Type Group [employer]IG[employer] - MGD CIGNA [id number] 2017-Present HMO/POS CARE HMO/POS/OPEN ACCESS
--- OUTSIDE RECORDS SUMMARY | 2020-04-27 16:52 | XMS REPORT | Continuity of Care Document ---
:1960 Author Organization [facility] t Address [address] [place] [address] Care Team Providers Name Role Phone Eb Franklin Primary Care Physician OSCAR Attending Clinician Unavailable Problems Condition Condition Condition Status Onset Resolution Last Treating Co mments Source Name Details Category Date Date Treatment Clinician Date Fatigue, Fatigue, Diagnosis Active [facility] unspecifie unspecifie Vickie kes - d type d type [facility] Low Low Problem Active [facility] testostero testostero Vickie kes - ne ne Memoria [facility] Low libido Low libido Diagnosis Active [facility] kes - [facility]oria [facility] Allergies, Adverse Reactions, Alerts This patient has no known allergies or adverse reactions. Social History Social Habit Start Date Stop Date Quantity Comments Source Sex Assigned At [facility] Medications Ordered Filled Start Stop Current Ordering Indication Dosage Frequency Signature Comments Components Source Medication Medication Date Date Medication? Clinician (SIG) Name Name Vimpat Vimpat Yes Indira [address] [facility] Albuterol Albuterol Yes Indira [address] [facility] Sulfate HFA Sulfate HFA Luis needed [facility] Paroxetine Paroxetine Yes Indira [address] [facility] HCl HCl Lusi in the [facility] Procedures This patient has no known procedures. Encounters Start End Encounter Admission Attending Care Care Encounter Source Date/Time Date/Time Type Type Clinicians Facility Department ID 2019-03-19 2019-03-19 Outpatient [facility] [id number] [facility] 13:30:00 13:30:00 t Specialty/U Vickie celines - Specialty rology [facility] l Clinic Outpati ent Clinics Results Test Description Test Time Test Comments Results Result Sour e Comments EEG AWAKE AND 2018-05-26 Reason for Date of EE05/26/18 DROWSY 14:39:00 exam:->SEIZUR DATE OF REPORT: 05/26/18 ACC: [id number] EEG Number: [id number] Test Location: outpatient Start time: 05/26/18 at 1007 Stop time: 05/26/18 at 1031 ICD-10: 75966 CPT Code: R56.9 HISTORY: 58 yo male [...] Fellow Brandon Valiente MD PhD Attending Neurophysiologist [facility] AWAKE AND 2017-11-08 Reason for Neurophysiology DROWSY 17:05:00 exam:->s09.90 Electroencephalogram xa, g31.84, Report DATE OF REPORT: r56.9 11/08/17Date(s) of Study: 11/08/17ACC: [id number]: [id number] time: 1454 hrsStop time: 1524 hrsICD-10: R40.4 Transient Alteration of AwarenessCPT Code: 21915 EEG: awake and asleep <40 min HISTORY: [...] WITH 2017-11-08 FINAL REPORT PATIENT ID: 13:51:00 [id number] MRI Brain with and without contrast seizure protocol 11/08/2017 at 1320. CLINICAL HISTORY: Cognitive impairment. COMPARISON: None available. TECHNIQUE: Multiplanar MR imaging of the brain was provided [id number] IV gadolinium administration using T1, T2, FLAIR, [...] MDReport Verified Date/Time: 11/08/2017 13:51:10 Reading Location: [facility] Radiology Reading Room -CREATININE 2017-11-08 12:49:00 Test Item Value Reference Range Interpretation Comme [facility] POC-CREATININE (ROZINA) (test 1.1 mg/dL 0.6-1.3 TESTED AT [facility] 6720 code = 1859) [facility] [address] POC-EGFR (ROZINA) (test code = 69 mL/min/1.73M2 1520)
[2020-04-27 17:40] LABS: Arterial Blood Carboxyhemoglob 0.9 % (0-1.5); Blood Gas Oxyhemoglobin 94.2 % (94-97); Blood O2 Saturation 95.9 % (92-98.5)
[2020-04-27 17:59] LABS: Absolute Lymphocytes (CBC) 1.6 K/uL (0.7-4.9); Basophils % 0.7 % (0-1.3); Hematocrit 43.3 % (39.6-49.0); Lymphocytes % 22.9 % (15.3-44.8); MPV 9.7 fL (7.6-11.3); RBC Red Blood Cell Count 4.81 M/uL (4.33-5.43)
--- NOTE | 2020-04-27 18:12 | RAD REPORT ---
EXAM DESCRIPTION: Adrianna Single View04/27/2020 6:02 pm CLINICAL HISTORY: Cough COMPARISON: 2017 FINDINGS: The lungs appear clear of acute infiltrate. The heart is normal size IMPRESSION: No acute abnormalities displayed
--- NOTE | 2020-04-27 18:16 | RAD REPORT ---
EXAM DESCRIPTION: CT - Head Brain Wo Cont - 04/27/2020 6:08 pm CLINICAL HISTORY: Dizziness/syncope COMPARISON: December 2019 TECHNIQUE: Computed axial tomography of the head was obtained. IV contrast was not requested. All CT scans are performed using dose optimization technique as appropriate and may include automated exposure control or mA/KV adjustment according to patient size. FINDINGS: An intracranial bleed is not seen . The ventricles are normal in caliber. No extra-axial fluid collection is noted. . Fluid within the sinuses/ mastoids is not seen. IMPRESSION: No acute intracranial abnormality is seen. If patient's symptoms persist MRI of the bra in would be recommended.
--- NOTE | 2020-04-27 18:22 | RAD REPORT ---
EXAM DESCRIPTION: CTHead angio04/27/2020 6:09 pm CLINICAL HISTORY: Syncope/dizziness COMPARISON: None TECHNIQUE: CT angiogram of the head was obtained. 3D MIPS reconstruction performed. All CT scans are performed using dose optimization technique as appropriate and may include automated exposure control or mA/KV adjustment according to patient size. FINDINGS: Distal right vertebral artery is hypoplastic. The basilar, internal carotid, anterior cerebral, middle cerebral and posterior cerebral arteries are normal caliber. An aneurysm is not seen. A significant stenosis is not noted. IMPRESSION: No acute abnormality displayed
[2020-04-27 18:28] LABS: ALT/SGPT 28 U/L (12-78); AST/SGOT 19 U/L (15-37); Albumin 3.8 g/dL (3.4-5.0); Alkaline Phosphatase 111 U/L (45-117); BUN Blood Urea Nitrogen 22 mg/dL (7-18); Bicarbonate 29 mmol/L (21-32); Bilirubin Direct < 0.1 mg/dL (0-0.2); Bilirubin Total 0.3 mg/dL (0.2-1.0); Glucose Level 94 mg/dL (74-106); Magnesium 2.1 mg/dL (1.8-2.4); NT PRO-BNP 27 pg/mL (<125); Potassium 3.9 mmol/L (3.5-5.1); Protein, Total 7.4 g/dL (6.4-8.2); Sodium Level 139 mmol/L (136-145); Troponin (Emerg Dept Use Only) < 0.02 ng/mL (0.0-0.045)
[2020-04-27] MEDS ORDERED: ACETAMINOPHEN 500 MG TAB ONE (19:16)
[2020-04-27] MEDS ORDERED: NA CHLORIDE 0.9% 1,000 ML ONE (19:16)
[2020-04-27] MEDS ORDERED: ACETYLCYST 6,000 MG/30 ML VIAL ONE (19:17)
--- NOTE | 2020-04-27 19:33 | EDPHYS ---
Physician Documentation [facility] Name: Xander Solis Age: 60 yrs Sex: Male : 1960 Arrival Date: 04/27/2020 Time: 16:54 Bed 7 Private MD: ED Physician Zhang Ugalde HPI: 04/27 17:23 This 60 yrs old Male presents to ER via EMS with complaints of sleepy, weak corinna and headache. 17:23 This 60 yrs old Male presents to ER via EMS with complaints of weak, tired corinna and headache. 17:23 The patient or guardian reports pain. The complaints affect the top of head, forehead, corinna left frontal area, left side of the back of head, left occipital area, left base of the skull, right frontal area, right side of the back of head, right occipital area and right base of the skull. Context of injury: The problem was sustained at home. Onset: The symptoms/episode began/occurred 3 day(s) ago. Associated signs and symptoms: The patient has no apparent associated signs or symptoms. weak, tired and now strickland. Severity of symptoms: At their worst the symptoms were mild, in the emergency department the symptoms are unchanged. Severity of symptoms: At their worst the symptoms were mild. Historical: - Allergies: 17:14 Benadryl; Adrverse reaction while taking Vimpat; jl7 - Home Meds: 17:14 paroxetine HCl 10 mg Oral tab 1 tab once daily [Active]; albuterol sulfate 2.5 mg /3 mL jl7 (0.083 %) Inhl nebu 3 mL 3 times per day [Active]; losartan 50 mg Oral tab 1 tab once daily [Active]; Vimpat 100 mg Oral tab 1 tab 2 times per day [Active]; tadalafil 5 mg Oral 1 tab once daily [Active]; - PMHx: 17:14 Asthma; Hypertension; Seizures; Myocardial infarction; Migraines; jl7 - PSHx: 17:14 nose surgery; jl7 - Immunization history:: Adult Immunizations not up to date. - Social history:: Smoking status: Patient reports use of chewing tobacco. - Family history:: not pertinent. ROS: 17:23 Constitutional: Negative for fever, chills, and weight loss, Eyes: Negative for injury, corinna pain, redness, and discharge, ENT: Negative for injury, pain, and discharge, Neck: Negative for injury, pain, and swelling, Cardiovascular: Negative for chest pain, palpitations, and edema, Respiratory: Negative for shortness of breath, cough, wheezing, and pleuritic chest pain, Abdomen/GI: Negative for abdominal pain, nausea, vomiting, diarrhea, and constipation, Back: Negative for injury and pain, : Negative for injury, bleeding, discharge, and swelling, MS/Extremity: Negative for injury and deformity, Skin: Negative for injury, rash, and discoloration, Psych: Negative for depression, anxiety, suicide ideation, homicidal ideation, and hallucinations, Allergy/Immunology: Negative for hives, rash, and allergies, Endocrine: Negative for neck swelling, polydipsia, polyuria, polyphagia, and marked weight changes, Hematologic/Lymphatic: Negative for swollen nodes, abnormal bleeding, and unusual bruising. 17:23 Neuro: Positive for headache. Exam: 17:23 Constitutional: This is a well developed, well nourished patient who is awake, alert, corinna and in no acute distress. Head/Face: Normocephalic, atraumatic. Eyes: Pupils equal round and reactive to light, extra-ocular motions intact. Lids and lashes normal. Conjunctiva and sclera are non-icteric and not injected. Cornea within normal limits. Periorbital areas with no swelling, redness, or edema. ENT: Nares patent. No nasal discharge, no septal abnormalities noted. Tympanic membranes are normal and external auditory canals are clear. Oropharynx with no redness, swelling, or masses, exudates, or evidence of obstruction, uvula midline. Mucous membranes moist. Neck: Trachea midline, no thyromegaly or masses palpated, and no cervical lymphadenopathy. Supple, full range of motion without nuchal rigidity, or vertebral point tenderness. No Meningismus. Chest/axilla: Normal chest wall appearance and motion. Nontender with no deformity. No lesions are appreciated. Cardiovascular: Regular rate and rhythm with a normal S1 and S2. No gallops, murmurs, or rubs. Normal PMI, no JVD. No pulse deficits. Respiratory: Lungs have equal breath sounds bilaterally, clear to auscultation and percussion. No rales, rhonchi or wheezes noted. No increased work of breathing, no retractions or nasal flaring. Abdomen/GI: Soft, non-tender, with normal bowel sounds. No distension or tympany. No guarding or rebound. No evidence of tenderness throughout. Back: No spinal tenderness. No costovertebral tenderness. Full range of motion. Male : Normal genitalia with no discharge or lesions. Skin: Warm, dry with normal turgor. Normal color with no rashes, no lesions, and no evidence of cellulitis. MS/ Extremity: Pulses equal, no cyanosis. Neurovascular intact. Full, normal range of motion. Neuro: Awake and alert, GCS 15, oriented to person, place, time, and situation. Cranial nerves II-XII grossly intact. Motor strength 5/5 in all extremities. Sensory grossly intact. Cerebellar exam normal. Normal gait. Psych: Awake, alert, with orientation to person, place and time. Behavior, mood, and affect are within normal limits. 17:27 Neck: ROM/movement: is normal, no acute changes, Meningeal signs: are not present, corinna Kernig's sign is negative, Brudzinski's sign is negative. 17:28 ECG was reviewed by the Attending Physician. [facility] Vital Signs: 16:50 BP 131 / 81; Pulse 86; Resp 19; Temp 98.3; Pulse Ox 100% ; Weight 95.25 kg; Height 6 jl7 ft. 2 in. (187.96 cm); Pain 9/10; 19:41 Pulse 69; Resp 18; Pulse Ox 100% on R/A; mg2 16:50 Body Mass Index 26.96 (95.25 kg, 187.96 cm) jl7 Stephan Coma Score: 17:23 Eye Response: spontaneous(4). Verbal Response: oriented(5). Motor Response: obeys [facility] commands(6). Total: 15. 17:26 Eye Response: spontaneous(4). Verbal Response: oriented(5). Motor Response: obeys [facility] commands(6). Total: 15. MDM: 16:54 Patient medically screened. [facility] 17:26 Differential diagnosis: Intracranial bleed- Concussion. Differential Diagnosis altered [facility] mental status. Data reviewed: vital signs, nurses notes, lab test result(s), EKG, radiologic studies, CT scan, plain films. Data interpreted: potline monitor: rate is 86 beats/min, rhythm is regular, Pulse oximetry: on room air is 100 %. Test interpretation: by ED physician or midlevel provider: ECG, plain radiologic studies. Counseling: I had a detailed discussion with the patient and/or guardian regarding: the historical points, exam findings, and any diagnostic results supporting the discharge/admit diagnosis, lab results, radiology results. 04/27 17:22 Order name: NT PRO-BNP; Complete Time: 18:38 [facility] 04/27 17:22 Order name: Basic Metabolic Panel; Complete Time: 18:38 [facility] 04/27 17:22 Order name: CBC with Diff; Complete Time: 18:20 [facility] 04/27 17:22 Order name: LFT's; Complete Time: 18:38 [facility] 04/27 17:22 Order name: Magnesium; Complete Time: 18:38 [facility] 04/27 17:22 Order name: Troponin (emerg Dept Use Only); Complete Time: 18:38 [facility] 04/27 17:22 Order name: XRAY Chest (1 view); Complete Time: 18:20 [facility] 04/27 17:22 Order name: CT Head Brain wo Cont; Complete Time: 18:20 [facility] 04/27 17:22 Order name: ABG; Complete Time: 18:20 [facility] 04/27 17:22 Order name: CT Head Angio; Complete Time: 18:38 [facility] 04/27 19:06 Order name: CREATININE WHOLE BLOOD EDAL 04/27 19:16 Order name: Urine Dipstick--Ancillary (enter results) tt3 04/27 17:22 Order name: EKG; Complete Time: 17:22 [facility] 04/27 17:22 Order name: Cardiac monitoring; Complete Time: 17:30 [facility] 04/27 17:22 Order name: EKG - Nurse/Tech; Complete Time: 17:30 [facility] 04/27 17:22 Order name: IV Saline Lock; Complete Time: 17:30 [facility] 04/27 17:22 Order name: Labs collected and sent; Complete Time: 17:30 [facility] 04/27 17:22 Order name: O2 Per Protocol; Complete Time: 17:30 [facility] 04/27 17:22 Order name: O2 Sat Monitoring; Complete Time: 17:30 [facility] 04/27 17:22 Order name: Urine Dipstick-Ancillary (obtain specimen); Complete Time: 19:16 corinna EC:28 Rate is 65 beats/min. Rhythm is regular. QRS [place] is Normal. AL interval is normal. QRS corinna interval is normal. QT interval is normal. No Q waves. T waves are Normal. No ST changes noted. Clinical impression: Normal ECG and No evidence of ischemia. Interpreted by me. Reviewed by me. Administered Medications: 17:45 Drug: NS 0.9% 1000 ml Route: IV; Rate: 1 bolus; Site: right antecubital; jl7 18:45 Follow up: Response: No adverse reaction; IV Status: Completed infusion; IV Intake: jl7 1000ml 19:11 Drug: NS 0.9% 1000 ml Route: IV; Rate: 1 bolus; Site: left hand; mg2 19:11 Drug: Tylenol 1000 mg Route: PO; mg2 19:11 Drug: Mucomyst - Acetylcysteine 600 mg Route: PO; mg2 Disposition: 04/27/20 19:32 Discharged to Home. Impression: Headache, Weakness, Unspecified kidney failure - prerenal. - Condition is Stable. - Discharge Instructions: General Headache Without Cause, Weakness, Fatigue, Weakness, Uhvc-vd-[id number], General Headache Without Cause, [id number]. - Work release form, Medication Reconciliation Form, Thank You Letter, Antibiotic Education, Prescription Opioid Use form. - Follow up: Private Physician; When: 2 - 3 days; Reason: Recheck today's complaints, Continuance of care, Re-evaluation by your physician. Follow up: Derrick Diaz; When: 2 - 3 days; Reason: Recheck today's complaints, Re-evaluation by your physician. - Problem is new. - Symptoms have improved. Signatures: Dispatcher [employer] EDMS Zhang Ugalde MD MD cha Leal, Jahala, RN RN jl7 Cyril Carnes RN RN mg2 Corrections: (The following items were deleted from the chart) 19:58 19:32 04/27/2020 19:32 Discharged to Home. Impression: Headache; Weakness; Unspecified mg2 kidney failure - prerenal. Condition is Stable. Discharge Instructions: General Headache Without Cause, Weakness, Fatigue, Weakness, Ftpc-[id number], General Headache Without Cause, Vgte-jc-[id number]. Prescriptions for Fioricet with Codeine [id number] mg Oral capsule - take 1 capsule by ORAL route every 4 hours as needed not to exceed 6 capsules per 24hrs; 20 capsule, Zofran 4 mg Oral Tablet - take 1 tablet by ORAL route every 12 hours As needed; 20 tablet. and Forms are Medication Reconciliation Form, Thank You Letter, Antibiotic Education, Prescription Opioid Use. Follow up: Private Physician; When: 2 - 3 days; Reason: Recheck today's complaints, Continuance of care, Re-evaluation by your physician. Follow up: Derrick Diaz; When: 2 - 3 days; Reason: Recheck today's complaints, Re-evaluation by your physician. Problem is new. Symptoms have improved. corinna
--- NOTE | 2020-04-27 19:33 | ER ---
Nurse's Notes [facility] Name: Xander Solis Age: 60 yrs Sex: Male : 1960 Arrival Date: 04/27/2020 Time: 16:54 Bed 7 Private MD: Diagnosis: Headache;Weakness;Unspecified kidney failure-prerenal Presentation: 04/27 16:50 Chief complaint: EMS states: Pt was at work slumped over, responded to repeated verbal jl7 stimuli, reports migraine at right mormonism, similar to previous migraines with photosensitivity. reported he slept all day Saturday and Saturday and pt reports feeling lethargic for the last few days. Coronavirus screen: Client denies travel out of the [place] in the last 14 days. At this time, the client does not indicate any symptoms associated with coronavirus-19. Ebola Screen: No symptoms or risks identified at this time. Initial Sepsis Screen: Does the patient meet any 2 criteria? No. Patient's initial sepsis screen is negative. Does the patient have a suspected source of infection? No. Patient's initial sepsis screen is negative. Risk Assessment: Do you want to hurt yourself or someone else? Patient reports no desire to harm self or others. Onset of symptoms was April 27, 2020 at 12:30. Care prior to arrival: IV initiated. 20 GA, in the left hand, Glucose check: 84. Transition of care: patient was not received from another setting of care. 16:50 Method Of Arrival: EMS: [place] [id number] 16:50 Acuity: SHERMAN 3 jl7 Triage Assessment: 17:14 General: Appears in no apparent distress. uncomfortable, Behavior is calm, cooperative, jl7 drowsy. Pain: Complains of pain in right mormonism Pain currently is 9 out of 10 on a pain scale. Quality of pain is described as sharp, Pain began 4 hours ago. 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 Full function Speech is normal, Facial symmetry appears normal, Intact. Cardiovascular: Denies chest pain, shortness of breath, Patient's skin is warm and dry. Respiratory: Airway is patent Respiratory effort is even, unlabored, Respiratory pattern is regular, symmetrical, Denies shortness of breath. GI: Patient currently denies constipation, diarrhea, nausea, vomiting. : Denies burning with urination, inability to void, pain urinary frequency. Derm: Skin is pink, warm \T\ dry. Musculoskeletal: No signs and/or symptoms reported regarding the musculoskeletal system. Historical: - Allergies: 17:14 Benadryl; Adrverse reaction while taking Vimpat; jl7 - Home Meds: 17:14 paroxetine HCl 10 mg Oral tab 1 tab once daily [Active]; albuterol sulfate 2.5 mg /3 mL jl7 (0.083 %) Inhl nebu 3 mL 3 times per day [Active]; losartan 50 mg Oral tab 1 tab once daily [Active]; Vimpat 100 mg Oral tab 1 tab 2 times per day [Active]; tadalafil 5 mg Oral 1 tab once daily [Active]; - PMHx: 17:14 Asthma; Hypertension; Seizures; Myocardial infarction; Migraines; jl7 - PSHx: 17:14 nose surgery; jl7 - Immunization history:: Adult Immunizations not up to date. - Social history:: Smoking status: Patient reports use of chewing tobacco. - Family history:: not pertinent. Screenin:15 Abuse screen: Denies threats or abuse. Denies injuries from another. Nutritional jl7 screening: No deficits noted. Tuberculosis screening: No symptoms or risk factors identified. 19:41 Fall Risk IV access (20 points). mg2 Assessment: 17:15 Reassessment: Dr. Ugalde at bedside. 7 Vital Signs: 16:50 BP 131 / 81; Pulse 86; Resp 19; Temp 98.3; Pulse Ox 100% ; Weight 95.25 kg; Height 6 jl7 ft. 2 in. (187.96 cm); Pain 9/10; 19:41 Pulse 69; Resp 18; Pulse Ox 100% on R/A; mg2 16:50 Body Mass Index 26.96 (95.25 kg, 187.96 cm) jl7 Stephan Coma Score: 17:23 Eye Response: spontaneous(4). Verbal Response: oriented(5). Motor Response: obeys corinna commands(6). Total: 15. 17:26 Eye Response: spontaneous(4). Verbal Response: oriented(5). Motor Response: obeys corinna commands(6). Total: 15. ED Course: 16:54 Patient arrived in ED. corinna 16:54 Zhang Ugalde MD is Attending Physician. corinna 16:58 Julieta Austin, RN is Primary Nurse. jl7 17:10 Triage completed. jl7 17:10 EKG done, by ED staff, reviewed by Zhang Ugalde MD. em1 17:10 Warm blanket given. em1 17:14 Arm band placed on right wrist. jl7 17:15 Maintain EMS IV. Dressing intact. Good blood return noted. Site clean \T\ dry. Gauge \T\ jl 7 site: 20 left hand. 17:15 Patient has correct armband on for positive identification. Placed in gown. Bed in low jl7 position. Call light in reach. Side rails up X2. hall monitor on. Pulse ox on. NIBP on. 18:02 XRAY Chest (1 view) In Process Unspecified. EDMS 18:09 CT Head Brain wo Cont In Process Unspecified. EDMS 18:09 CT Head Angio In Process Unspecified. EDMS 19:32 Derrick Diaz MD is Referral Physician. corinna 19:41 No provider procedures requiring assistance completed. mg2 19:49 Primary Nurse role handed off by Julieta Austin, RN ll2 Administered Medications: 17:45 Drug: NS 0.9% 1000 ml Route: IV; Rate: 1 bolus; Site: right antecubital; jl7 18:45 Follow up: Response: No adverse reaction; IV Status: Completed infusion; IV Intake: jl7 1000ml 19:11 Drug: NS 0.9% 1000 ml Route: IV; Rate: 1 bolus; Site: left hand; mg2 19:11 Drug: Tylenol 1000 mg Route: PO; mg2 19:11 Drug: Mucomyst - Acetylcysteine 600 mg Route: PO; mg2 Intake: 18:45 IV: 1000ml; Total: 1000ml. jl7 Outcome: 19:32 Discharge ordered by . corinna 19:58 Patient left the ED. mg2 Signatures: Dispatcher [employer] EDMS Zhang Ugalde MD MD cha Martinez, Eric em1 Julieta Austin, RN RN jl7 Cyril Carnes RN RN mg2 Kristen Haas RN RN ll2
[2020-04-27 20:26] LABS: Urine Blood NEGATIVE (NEG); Urine Glucose NEGATIVE (NEG); Urine Protein NEGATIVE (NEG); Urine pH 5.5 (5.0-7.0)
[2020-04-27 20:48] VITALS: BP 131/81; TEMP 98.3; O2SAT 100
--- NOTE | 2020-04-28 07:26 | EKG ---
Test Date: 2020-04-27 Test Time: 17:06:21 [place] Operator: SUNSHINE MEASUREMENT RESULTS: Intervals: Rate: 65 OH: 166 QRSD: 88 QT: 394 QTc: 409 [place]: P: 68 OH: 166 QRS: 13 T: 59 INTERPRETIVE STATEMENTS: Normal sinus rhythm Normal ECG Compared to ECG 10/14/2017 19:28:14 Myocardial infarct finding no longer present Electronically Signed On 04-28-20 07:24:46 CDT by Brent Sánchez
== END 2020-04-27 19:58 | disposition home or self-care (01) ==
LOC: ER 16:49
DX: R51.9 Headache, unspecified (principal); N19 Unspecified kidney failure; I10 Essential (primary) hypertension; J45.909 Unspecified asthma, uncomplicated; F17.220 Nicotine dependence, chewing tobacco, uncomplicated; Z88.8 Allergy status to other drugs, medicaments and biological substances
CPT/HCPCS: 85025; 80048; 36415; 83735; 82565; 80076; 81003; 84484; 83880; 70450; 70496; 71045; 82805; Q9967; J7030; 93005